=== PATIENT | female | born 1960 | race Caucasian/White ===

== ENCOUNTER 2016-05-14 21:00 | Emergency (ER) | payer MEDICARE, OTHER ==
[2016-05-14 21:29] VITALS: TEMP 98.4; BMI 23.8
[2016-05-14 22:05] LABS: LEUKOCYTES/URINE NEG (NEGATIVE); NITRITE/URINE NEG (NEGATIVE); RBC/URINE 0-2 (0-5); URINE OCCULT BLOOD 2+ (NEG/TRACE); WBC/URINE 0-2 (0-5)
--- NOTE | 2016-05-14 22:21 | EDPRACDOC ---
- General Information Chief Complaint: Female Urogenital Problems Stated Complaint: ? KIDNEY STONE RT FLANK PAIN HX OF THE SAME Time Seen by Provider: 05/14/16 21:34 Mode Of Arrival: Car Home Medications: Home Medications Tamoxifen [Nolvadex] 20 mg PO DAILY 12/19/14 Canagliflozin/Metformin HCl [Invokamet 150-500 mg Tablet] 1 tab PO BID 01/18/16 Ciprofloxacin HCl [Cipro] 500 mg PO BID #20 tab 01/18/16 Ergocalciferol (Vitamin D2) [Vitamin D] 50,000 units PO WEEKLY 01/18/16 Hydrocodone Bit/Acetaminophen [Hydrocodon-Acetaminophen 5-325] 1 tab PO Q6 PRN # 20 tab 01/18/16 Metronidazole [Flagyl] 500 mg PO BID #20 tab 01/18/16 Ketorolac Tromethamine [Toradol] 10 mg PO Q6H PRN #20 tab 05/14/16 Ondansetron [Zofran Odt] 4 mg PO Q6H PRN #10 tab.rapdis 05/14/16 Oxycodone HCl [Roxicodone] 5 mg PO Q6H #15 tablet 05/14/16 Tamsulosin HCl [Flomax] 0.4 mg PO DAILY #14 cap 05/14/16 Allergies/Adverse Reactions: Allergies Allergy/AdvReac Type Severity Reaction Status Date / Time No Known Allergies Allergy Verified 01/18/16 11:38 - History of Present Illness Onset: DRY MAN HPI: PT SAID THAT SHE MAY HAVE A KIDNEY STONE. PT SAID THAT SHE HAS HAD INTERMITTENT URINARY SX FOR THE PAST MONTH. NO TX. PAIN RIGHT NOW IS IMPROVED AND SHE DOES NOT WANT ANY PAIN MEDS. PT ALSO NOTES THAT SHE HAS MISSED DOSES OF HER MEDS AND HAS NOT BEEN FOLLOWING A DIABETIC DIET. Pain Began: Reports: Spontaneous Pain Location: Reports: Back, Flank Pain Severity: Moderate Pain Quality: Reports: Sharp : No Oral Intake: Normal Urinary Output: Normal Associated Signs and Symptoms: Reports: Dysuria, Abdominal Pain ED Past Medical History - Patient Medical History Cardiac History: Reports: Hypercholesterolemia GI/ History: Reports: Urinary Tract Infection, Kidney Stones, Gastroesophageal Reflux Psychological History: Denies: Depression Systemic History: Reports: Cancer (BREAST), Diabetes Surgical History: Reports: Other (RIGHT LUMPECTOMY, BTL). Denies: Hysterectomy (RIGHT LUMPECTOMY, BTL, KIDNEY STONE REMOVAL) - Family Medical History Reports: Hypertension (sister/brother), Diabetes (sister), Cancer (mother), Cardiac Disorders (mother/sister). Denies: Stroke - Social Medical History Smoking Status: Never smoker ETOH: None Substance Abuse: None Lives In: Home EDM Review of Systems - Review of Systems ROS Negative Except as Marked: Yes All systems reviewed and were negative except as marked Gastrointestinal: Pain Genitourinary: Flank Pain - Physical Exam Constitutional: Alert (Awake), No apparent distress Oriented to: Time, Person, Place Last recorded Vital Signs: Last Vital Signs Temp 98.4 F 05/14/16 21:26 Pulse 100 05/14/16 21:26 Resp 20 05/14/16 21:26 BP 136/79 05/14/16 21:26 Pulse Ox 97 05/14/16 21:26 Oxygen Pulse Oxygen Saturation 97 O2 Device Room Air Oxygen Flow Rate Fraction of Inspired Oxygen ( FIO2) - HEENT Head: Normal ( normocephalic) Eye Exam: Normal (PERRL, EOMI, Sclera white) Oropharynx: Normal (Pharynx:Moist without exudate,Gums-no swelling) ENT EAC: Normal TMJ: Normal Nose: No Symptoms Reported (septum midline) Neck: Normal (FROM, trachea at midline) - Respiratory/Cardiovascular Respiratory: Normal - CTA (BBS clear to auscultation without adventitious sounds ) Cardiovascular: Normal (RRR without murmur, gallop or rub) - GI Auscultation: Normal (NABS) Palpation: Normal (Soft,No rebound or guarding, non distended) Tenderness: Non tender Woods's Sign: Negative - Musculoskeletal Back: Normal (Non-Tender) Extremities: Normal (Normal tone, Pulses 2+ No cyanosis or edema, FROM) - Integumentary Skin: Normal, Warm, Dry Lymphatics: Normal (no adenopathy) - Neurologic Memory Impaired: Normal Motor Function: Normal (Normal tone, Pulses 2+ No cyanosis or edema, FROM) Cranial Nerve: Normal (CN II-X11 intact sensation, strength 5/5) Cerebellar: Normal Mood Description: Normal Perception: Normal - Results Urine Color Yellow 05/14/16 21:45 Urine Clarity Clear 05/14/16 21:45 Urine pH 6.0 (5.0-8.0) 05/14/16 21:45 Ur Specific Savage 1.005 (1.003-1.035) 05/14/16 21:45 Urine Protein Neg (NEG/TRACE) 05/14/16 21:45 Urine Glucose (UA) 3+ (NEGATIVE) H 05/14/16 21:45 Urine Ketones Neg (NEGATIVE) 05/14/16 21:45 Urine Occult Blood 2+ (NEG/TRACE) H 05/14/16 21:45 Urine Nitrite Neg (NEGATIVE) 05/14/16 21:45 Urine Bilirubin Neg (NEGATIVE) 05/14/16 21:45 Urine Urobilinogen <2.0 MG/DL (0-1) 05/14/16 21:45 Ur Leukocyte Esterase Neg (NEGATIVE) 05/14/16 21:45 Urine RBC 0-2 (0-5) 05/14/16 21:45 Urine WBC 0-2 (0-5) 05/14/16 21:45 Ur Epithelial Cells Occ 05/14/16 21:45 Urine Yeast Mod (NONE) H 05/14/16 21:45 Lab Results 05/14/16 21:45 Urine Color Yellow Urine Clarity Clear Urine pH 6.0 Ur Specific [place] 1.005 Urine Protein Neg Urine Glucose (UA) 3+ H Urine Ketones Neg Urine Occult Blood 2+ H Urine Nitrite Neg Urine Bilirubin Neg Urine Urobilinogen <2.0 Ur Leukocyte Esterase Neg Urine RBC 0-2 Urine WBC 0-2 Ur Epithelial Cells Occ Urine Yeast Mod H Decision Time to Discharge: 22:25 - Departure Yes I personally saw and evaluated the patient. Disposition: Home Condition: Fair Final Diagnosis: Renal colic Instructions: Kidney Stones (ED) Education/Counseling Given To: Patient Education/Counseling Given Regarding: Diagnosis, Treatment, Follow Up Referrals: Kylie Crawford PA [Primary Care Provider] - One Week Cody Lares MD [Staff Physician] - One Week Prescriptions: Ketorolac Tromethamine [Toradol] 10 mg PO Q6H PRN #20 tab PRN Reason: Pain Ondansetron [Zofran Odt] 4 mg PO Q6H PRN #10 tab.rapdis PRN Reason: Nausea/Vomiting Oxycodone HCl [Roxicodone] 5 mg PO Q6H #15 tablet Tamsulosin HCl [Flomax] 0.4 mg PO DAILY #14 cap Additional Instructions: TAKE MEDS DIRECTED. DIABETIC DIET.
[2016-05-14 22:44] VITALS: BP 128/80; PULSE 86
== END 2016-05-14 22:42 | disposition home or self-care (01) ==
LOC: ED 21:00
DX: N23 Unspecified renal colic (principal)
CPT/HCPCS: 81001; 82962; 99282

== ENCOUNTER 2016-05-21 14:48 | Emergency (ER) | payer OTHER ==
[2016-05-21 15:29] VITALS: BP 148/97; PULSE 122; TEMP 97.9; BMI 23.5
[2016-05-21 15:44] LABS: AUTOMATED BASOPHIL 0.8 % (0-2); AUTOMATED LYMPH 30.2 % (17-44); MPV 9.8 fL (7.4-10.4)
[2016-05-21 15:55] LABS: LEUKOCYTES/URINE NEG (NEGATIVE); NITRITE/URINE NEG (NEGATIVE); URINE OCCULT BLOOD TRACE (NEG/TRACE)
[2016-05-21 16:01] LABS: BLOOD UREA NITROGEN 16 MG/DL (7-17); CALCIUM 9.3 MG/DL (8.4-10.2); CALCULATED OSMOLALITY 267 MOs/Kg (270-290); CHLORIDE 102 mEq/L (98-107); GLUCOSE 103 MG/DL (70-99); SODIUM LEVEL 138 mEq/L (137-146); TOTAL PROTEIN 8.4 G/DL (6.3-8.2)
== END 2016-05-21 19:14 | disposition left against medical advice (07) ==
LOC: ED 14:48
DX: R30.0 Dysuria (principal)
CPT/HCPCS: 80053; 81001; 85025; 99281